=== PATIENT | male | born 1955 | race Caucasian/White ===

== ENCOUNTER 2017-11-07 17:33 | Inpatient (IN) | payer OTHER ==
[2017-11-07] MEDS: DEXTROSE 5%-0.45% NACL 1,000 ML IV (18:00)
[2017-11-07] MEDS: SOD CHLORIDE 0.9% 1,000 ML IV (18:20)
[2017-11-07] MEDS ORDERED: NACL 0.9% 3 ML SYG IV (18:30)
[2017-11-07] MEDS ORDERED: DEXTROSE 50% 50 ML SYRINGE IV ×2 (19:00)
[2017-11-07] MEDS ORDERED: GLUCAGON 1 MG INJ IM (19:00)
[2017-11-07] MEDS ORDERED: GLUCOSE GEL 15 GRAM TUBE PO ×2 (19:00)
[2017-11-07] MEDS ORDERED: GLUCOSE GEL 15 GRAM TUBE BUCCAL (19:00)
[2017-11-07] MEDS: ONDANSETRON 4 MG INJ IV (20:17)
[2017-11-07] MEDS: morphine 2 MG INJ IV (20:17)
[2017-11-07] MEDS: INSULIN ASPART [NOVOLOG] 3 ML PEN SC (21:45)
[2017-11-07] MEDS ORDERED: CHLORPROMAZINE 25 MG TAB PO (23:00)
[2017-11-08] MEDS: ACCU-CHEK XX (02:19)
[2017-11-08] MEDS: PANTOPRAZOLE 40 MG INJ IV (05:35)
[2017-11-08 05:55] LABS: ADD MAN DIFF? NO
[2017-11-08 05:58] LABS: WHITE BLOOD COUNT 14.4 10^3/ul (4.8-10.8)
[2017-11-08 05:58] LABS: BASOPHILS % 0.1 % (0.0-2.0); HEMOGLOBIN 13.8 g/dl (14.0-18.0); LYMPHOCYTES # 0.9 10^3/ul (0.8-2.9); LYMPHOCYTES % 6.4 % (15.0-51.0); MEAN CORPUSCULAR HEMOGLOBIN 32.2 pg (29.0-33.0); MEAN CORPUSCULAR HGB CONC 35.4 g/dl (32.0-37.0); MEAN CORPUSCULAR VOLUME 90.9 fl (82.0-101.0); MONOCYTE # 0.9 10^3/ul (0.3-0.9); MONOCYTES % 6.4 % (0.0-11.0); NEUTROPHIL # 12.4 10^3/ul (1.6-7.5); NEUTROPHILS % 86.4 % (39.0-77.0); PLATELET COUNT 179 10^3/UL (140-415); RED BLOOD COUNT 4.29 10^6/ul (4.70-6.10); RED CELL DISTRIBUTION WIDTH 12.3 % (11.5-14.5)
[2017-11-08] MEDS ORDERED: PANTOPRAZOLE 40 MG INJ IV (06:00)
[2017-11-08 06:30] LABS: ALANINE AMINOTRANSFERASE 29 IU/L (13-69); ALBUMIN 3.5 g/dl (3.3-4.9); ALBUMIN/GLOBULIN RATIO 1.25; ALKALINE PHOSPHATASE 107 IU/L (42-121); ANION GAP 15 (8-16); ASPARTATE AMINO TRANSFERASE 26 IU/L (15-46); BILIRUBIN,INDIRECT 1.4 mg/dl (0-1.1); BILIRUBIN,TOTAL 1.4 mg/dl (0.2-1.3); BLOOD UREA NITROGEN 26 mg/dl (7-20); CALCIUM 8.7 mg/dl (8.4-10.2); CARBON DIOXIDE 27 mmol/L (21-31); CHLORIDE 103 mmol/L (97-110); CHOL/HDL RATIO 3.6 RATIO; CHOLESTEROL 181 mg/dl (100-200); CREATININE 0.72 mg/dl (0.61-1.24); GLUCOSE 206 mg/dl (70-220); HDL CHOLESTEROL 49 mg/dl (30-78); LDL CHOLESTEROL,CALCULATED 96 mg/dl; POTASSIUM 3.8 mmol/L (3.5-5.1); SODIUM 141 mmol/L (135-144); TOTAL PROTEIN 6.3 g/dl (6.1-8.1); TRIGLYCERIDES 181 mg/dl (0-149)
[2017-11-08] MEDS: SOD CHLORIDE 0.9% 1,000 ML IV ×2 (07:57→20:44)
[2017-11-08] MEDS: INSULIN ASPART [NOVOLOG] 3 ML PEN SC ×4 (08:36→20:39)
[2017-11-08] MEDS: METOCLOPRAMIDE 5 MG TAB PO ×2 (13:00→20:43)
[2017-11-08] MEDS: DEXTROSE 5%-0.45% NACL 1,000 ML IV (14:00)
[2017-11-08] MEDS: VALSARTAN 160 MG TAB PO (15:45)
[2017-11-08] MEDS: hydrALAzine 20 MG INJ IV (16:55)
[2017-11-08] MEDS: CEFTRIAXONE 1 GM/50 ML (PMX) 50 ML IVPB (19:53)
[2017-11-09] MEDS: ACCU-CHEK XX ×2 (01:48→23:58)
[2017-11-09 05:27] LABS: ADD MAN DIFF? NO
[2017-11-09] MEDS: PANTOPRAZOLE 40 MG INJ IV (05:27)
[2017-11-09 05:35] LABS: BASOPHILS % 0.3 % (0.0-2.0); EOSINOPHILS % 0.1 % (0.0-7.0); HEMATOCRIT 37.8 % (42.0-52.0); HEMOGLOBIN 13.1 g/dl (14.0-18.0); LYMPHOCYTES # 1.2 10^3/ul (0.8-2.9); LYMPHOCYTES % 11.6 % (15.0-51.0); MEAN CORPUSCULAR HEMOGLOBIN 31.6 pg (29.0-33.0); MEAN CORPUSCULAR HGB CONC 34.7 g/dl (32.0-37.0); MEAN CORPUSCULAR VOLUME 91.3 fl (82.0-101.0); MONOCYTE # 0.7 10^3/ul (0.3-0.9); MONOCYTES % 6.5 % (0.0-11.0); NEUTROPHIL # 8.1 10^3/ul (1.6-7.5); NEUTROPHILS % 81.1 % (39.0-77.0); PLATELET COUNT 170 10^3/UL (140-415); RED BLOOD COUNT 4.14 10^6/ul (4.70-6.10); RED CELL DISTRIBUTION WIDTH 12.1 % (11.5-14.5)
[2017-11-09 05:53] LABS: ALANINE AMINOTRANSFERASE 35 IU/L (13-69); ALBUMIN 3.2 g/dl (3.3-4.9); ALKALINE PHOSPHATASE 98 IU/L (42-121); ANION GAP 15 (8-16); ASPARTATE AMINO TRANSFERASE 19 IU/L (15-46); BILIRUBIN,INDIRECT 1.4 mg/dl (0-1.1); BILIRUBIN,TOTAL 1.4 mg/dl (0.2-1.3); BLOOD UREA NITROGEN 19 mg/dl (7-20); CALCIUM 8.6 mg/dl (8.4-10.2); CARBON DIOXIDE 27 mmol/L (21-31); CHLORIDE 103 mmol/L (97-110); CREATININE 0.73 mg/dl (0.61-1.24); GLUCOSE 175 mg/dl (70-220); POTASSIUM 3.7 mmol/L (3.5-5.1); SODIUM 141 mmol/L (135-144); TOTAL PROTEIN 6.1 g/dl (6.1-8.1)
[2017-11-09] MEDS: VALSARTAN 160 MG TAB PO (09:00)
[2017-11-09] MEDS: METOCLOPRAMIDE 5 MG TAB PO ×3 (09:01→20:37)
[2017-11-09] MEDS: INSULIN ASPART [NOVOLOG] 3 ML PEN SC ×4 (09:03→20:39)
[2017-11-09] MEDS: DEXTROSE 5%-0.45% NACL 1,000 ML IV (10:00)
[2017-11-09] MEDS: SOD CHLORIDE 0.9% 1,000 ML IV ×2 (10:46→23:40)
[2017-11-09] MEDS: hydrALAzine 20 MG INJ IV ×2 (10:46→21:09)
[2017-11-09] MEDS: CEFTRIAXONE 1 GM/50 ML (PMX) 50 ML IVPB (20:27)
[2017-11-10] MEDS: DEXTROSE 5%-0.45% NACL 1,000 ML IV (06:00)
[2017-11-10] MEDS: PANTOPRAZOLE 40 MG INJ IV (06:03)
[2017-11-10] MEDS: VALSARTAN 160 MG TAB PO (08:35)
[2017-11-10] MEDS: METOCLOPRAMIDE 5 MG TAB PO ×3 (08:35→20:23)
[2017-11-10] MEDS: INSULIN ASPART [NOVOLOG] 3 ML PEN SC ×4 (08:38→21:00)
[2017-11-10] MEDS: LISINOPRIL 10 MG TAB PO (13:00)
[2017-11-10] MEDS: SOD CHLORIDE 0.9% 1,000 ML IV (13:02)
[2017-11-10] MEDS: CEFTRIAXONE 1 GM/50 ML (PMX) 50 ML IVPB (18:40)
[2017-11-10] MEDS: hydrALAzine 20 MG INJ IV (20:03)
[2017-11-10] MEDS: morphine 2 MG INJ IV (20:23)
[2017-11-10] MEDS: ACCU-CHEK XX (23:39)
[2017-11-11 05:03] LABS: ADD MAN DIFF? NO
[2017-11-11 05:05] LABS: WHITE BLOOD COUNT 6.6 10^3/ul (4.8-10.8)
[2017-11-11 05:05] LABS: BASOPHILS % 0.6 % (0.0-2.0); EOSINOPHILS # 0.1 10^3/ul (0.0-0.5); EOSINOPHILS % 1.1 % (0.0-7.0); HEMATOCRIT 34.5 % (42.0-52.0); HEMOGLOBIN 12.4 g/dl (14.0-18.0); LYMPHOCYTES # 1.4 10^3/ul (0.8-2.9); LYMPHOCYTES % 21.5 % (15.0-51.0); MEAN CORPUSCULAR HEMOGLOBIN 32.1 pg (29.0-33.0); MEAN CORPUSCULAR HGB CONC 35.9 g/dl (32.0-37.0); MEAN CORPUSCULAR VOLUME 89.4 fl (82.0-101.0); MEAN PLATELET VOLUME 10.3 fl (7.4-10.4); MONOCYTE # 0.6 10^3/ul (0.3-0.9); MONOCYTES % 8.4 % (0.0-11.0); NEUTROPHIL # 4.5 10^3/ul (1.6-7.5); NEUTROPHILS % 67.8 % (39.0-77.0); PLATELET COUNT 174 10^3/UL (140-415); RED BLOOD COUNT 3.86 10^6/ul (4.70-6.10); RED CELL DISTRIBUTION WIDTH 11.8 % (11.5-14.5)
[2017-11-11] MEDS: PANTOPRAZOLE 40 MG INJ IV (05:25)
[2017-11-11 05:50] LABS: ANION GAP 12 (8-16); BLOOD UREA NITROGEN 16 mg/dl (7-20); CALCIUM 8.5 mg/dl (8.4-10.2); CARBON DIOXIDE 27 mmol/L (21-31); CHLORIDE 103 mmol/L (97-110); CREATININE 0.64 mg/dl (0.61-1.24); GLUCOSE 179 mg/dl (70-220); POTASSIUM 3.5 mmol/L (3.5-5.1); SODIUM 138 mmol/L (135-144)
[2017-11-11] MEDS: METOCLOPRAMIDE 5 MG TAB PO ×3 (08:34→20:23)
[2017-11-11] MEDS: LISINOPRIL 10 MG TAB PO (08:34)
[2017-11-11] MEDS: VALSARTAN 160 MG TAB PO (08:35)
[2017-11-11] MEDS: INSULIN ASPART [NOVOLOG] 3 ML PEN SC ×4 (08:41→21:00)
[2017-11-11] MEDS: SOD CHLORIDE 0.9% 1,000 ML IV ×2 (13:18)
[2017-11-11] MEDS: hydrALAzine 20 MG INJ IV (13:21)
[2017-11-11] MEDS: LINAGLIPTIN 5 MG TABLET PO (14:55)
[2017-11-11] MEDS: AMLODIPINE 5 MG TAB PO (14:56)
[2017-11-11] MEDS: metFORMIN 500 MG TAB PO (17:20)
[2017-11-11] MEDS: CEFTRIAXONE 1 GM/50 ML (PMX) 50 ML IVPB (20:23)
[2017-11-11] MEDS: ACCU-CHEK XX (21:06)
[2017-11-11] MEDS: DOCUSATE SODIUM 100 MG CAP PO (23:39)
[2017-11-11] MEDS: BISACODYL (EC) 5 MG TAB PO (23:39)
[2017-11-11] MEDS: MAGNESIUM HYDROXIDE 30ML CUP PO (23:39)
[2017-11-11] MEDS: morphine 2 MG INJ IV (23:45)
[2017-11-12] MEDS: PANTOPRAZOLE (EC) 40 MG TAB PO (06:24)
[2017-11-12] MEDS: metFORMIN 500 MG TAB PO ×2 (08:32→17:30)
[2017-11-12] MEDS: METOCLOPRAMIDE 5 MG TAB PO ×3 (08:32→20:13)
[2017-11-12] MEDS: LINAGLIPTIN 5 MG TABLET PO (08:32)
[2017-11-12] MEDS: AMLODIPINE 5 MG TAB PO (08:33)
[2017-11-12] MEDS: VALSARTAN 160 MG TAB PO (08:33)
[2017-11-12] MEDS: LISINOPRIL 10 MG TAB PO (08:33)
[2017-11-12] MEDS: INSULIN ASPART [NOVOLOG] 3 ML PEN SC ×4 (08:38→20:19)
[2017-11-13] MEDS: ACCU-CHEK XX (01:26)
[2017-11-13] MEDS: PANTOPRAZOLE (EC) 40 MG TAB PO (05:50)
[2017-11-13] MEDS: metFORMIN 500 MG TAB PO (09:16)
[2017-11-13] MEDS: INSULIN ASPART [NOVOLOG] 3 ML PEN SC (09:18)
[2017-11-13] MEDS: METOCLOPRAMIDE 5 MG TAB PO (09:19)
[2017-11-13] MEDS: AMLODIPINE 5 MG TAB PO (09:19)
[2017-11-13] MEDS: LINAGLIPTIN 5 MG TABLET PO (09:19)
[2017-11-13] MEDS: VALSARTAN 160 MG TAB PO (09:19)
[2017-11-13] MEDS: LISINOPRIL 10 MG TAB PO (09:19)
== END 2017-11-13 12:07 | disposition home or self-care (01) | DRG 638 ==
LOC: MS1 17:33
PROVIDERS: Internal Medicine Nephrology
DX: E11.65 Type 2 diabetes mellitus with hyperglycemia (principal); F33.2 Major depressive disorder, recurrent severe without psychotic features; R45.851 Suicidal ideations; E87.8 Other disorders of electrolyte and fluid balance, not elsewhere classified; I10 Essential (primary) hypertension; E86.0 Dehydration; G43.A0 Cyclical vomiting, in migraine, not intractable; K21.9 Gastro-esophageal reflux disease without esophagitis; F12.90 Cannabis use, unspecified, uncomplicated; Z91.14 Patient's other noncompliance with medication regimen; R79.89 Other specified abnormal findings of blood chemistry
CPT/HCPCS: 71045; 71046; 76705; 80048; 80053; 80061; 82962; 83036; 85025; 87400; 97162